=== PATIENT | male | born 1970 | race Caucasian/White ===

== ENCOUNTER 2019-01-15 11:25 | Emergency (ER) | payer MEDICARE, MEDICAID ==
[2019-01-15 11:47] VITALS: BP 139/80
[2019-01-15] MEDS ORDERED: Ketorolac 60 MG/2 ML SDV IM ONE (12:21)
--- NOTE | 2019-01-15 12:23 | EDM.PDOC ---
ED HPI GENERAL MEDICAL PROBLEM - General Chief Complaint: Neck Problem Stated Complaint: FUSION NECK, LEFT SIDE NECK/SHOULDER PAIN Time Seen by Provider: 01/15/19 12:05 Source of Information: Reports: Patient History Limitations: Reports: No Limitations - History of Present Illness INITIAL COMMENTS - FREE TEXT/NARRATIVE: 48 yo male s/p cervical neck fusion and who doctors in [place] comes for L post neck and shoulder pain/stiffness over the past couple of days. Has not discussed with his provider. No numbness to his arm. Denies any acute injury. Did carry grocery up stairs a couple days ago just before this started. Hurts some to turn his head to the left. 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 (see below) (none) - Related Data Allergies Allergy/AdvReac Type Severity Reaction Status Date / Time meloxicam Allergy Other Verified 01/15/19 11:49 trazodone Allergy Other Verified 01/15/19 11:49 Home Meds: Home Meds oxyCODONE HCl/Acetaminophen [Percocet 10-325 mg Tablet] 1 - 2 tab PO Q6H PRN 06/27 [History] Ranitidine [Zantac] 300 mg PO DAILY 09/20/16 [History] Albuterol Sulfate [Proair Hfa] 1 - 2 puff IH Q6H PRN 09/29/16 [History] Aspirin/Acetaminophen/Caffeine [Headache Relief Tablet] 1 tab PO ASDIRECTED PRN 09/29/16 [History] Omeprazole 20 mg PO QAM 09/29/16 [History] Chlorzoxazone 1 tab PO TID 01/15/19 [History] Cyclobenzaprine [Flexeril] 10 mg PO TID PRN #14 tab 01/15/19 [Rx] Past Medical History HEENT History: Reports: Impaired Vision, Other (See Below) Other HEENT History: polyps Respiratory History: Reports: Bronchitis, Recurrent Gastrointestinal History: Reports: Chronic Diarrhea, GERD Genitourinary History: Reports: Renal Calculus Musculoskeletal History: Reports: Back Pain, Chronic, Fracture, Osteoarthritis Other Musculoskeletal History: 2004 trampoline accident fracture hip. 2011 total hip replacement. 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 decompression surgert l4 and l5 Nov 2014. herniated disk cervical Neurological History: Reports: Concussion, Migraines Psychiatric History: Reports: Anxiety, Bipolar, Depression - Infectious Disease History Infectious Disease History: Reports: Chicken Pox - Past Surgical History HEENT Surgical History: Reports: Oral Surgery Musculoskeletal Surgical History: Reports: Hip Replacement Social & Family History - Tobacco Use Smoking Status *Q: Current Every Day Smoker Years of Tobacco use: 30 Packs/Tins Daily: 1 - Caffeine Use Caffeine Use: Reports: Coffee ED ROS GENERAL - Review of Systems Review Of Systems: See Below Constitutional: Reports: No Symptoms HEENT: Reports: No Symptoms Respiratory: Reports: No Symptoms Cardiovascular: Reports: No Symptoms GI/Abdominal: Reports: No Symptoms : Reports: No Symptoms Musculoskeletal: Reports: Neck Pain, Shoulder Pain (L posterior) Skin: Reports: No Symptoms Neurological: Reports: No Symptoms ED EXAM, UPPER BACK/NECK PAIN - Physical Exam Exam: See Below Exam Limited By: No Limitations General Appearance: Alert, WD/WN, No Apparent Distress Back Exam: Other (tenderness in the distribution of the L trapezius muscle. 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 Take ibuprofen 600 mg every 6 hrs after 6 pm today for pain relief. May add acetaminophen for added relief. Apply warm, moist compresses to area several times a day. Rest that arm in a sling. Recheck with your doctor if not better by [place].) Clinical Impression: Trapezius muscle strain Qualifiers: Encounter type: initial encounter Laterality: left Qualified Code(s): S46.812A - Strain of other muscles, fascia and tendons at shoulder and upper arm level, left arm, initial encounter - Discharge Information *PRESCRIPTION DRUG MONITORING PROGRAM REVIEWED*: No *COPY OF PRESCRIPTION DRUG MONITORING REPORT IN PATIENT SAVANNA: No Instructions: Muscle Strain, [id number] Referrals: PCP,None [Primary Care Provider] - Additional Instructions: Take ibuprofen 600 mg every 6 hrs with food after 6 pm today. Use Flexeril as directed. Use acetaminophen for added relief. Wear sling for support. Rest the L arm. Moist heat and massage will likely benefit. Recheck with your doctor if not better by Thursday.
== END 2019-01-15 12:36 | disposition home or self-care (01) ==
LOC: JP.ED 11:25
DX: S46.812A Strain of other muscles, fascia and tendons at shoulder and upper arm level, left arm, initial encounter (principal); F17.210 Nicotine dependence, cigarettes, uncomplicated; Z98.890 Other specified postprocedural states; Z88.8 Allergy status to other drugs, medicaments and biological substances; Z79.899 Other long term (current) drug therapy; X58.XXXA Exposure to other specified factors, initial encounter
CPT/HCPCS: 96372; 99283; J1885

== ENCOUNTER 2019-11-16 06:11 | Day surgery (SDC) | payer MEDICARE, MEDICAID ==
[2019-11-16] MEDS ORDERED: Bupivacaine 0.5% 30 ML SDV ONE ×2 (06:28→07:31)
[2019-11-16] MEDS ORDERED: Nozin Nasal Sanitizer NASBOTH ONE (06:30)
[2019-11-16] MEDS ORDERED: Lactated Ringers 1,000 ML IV SCH (06:30)
[2019-11-16] MEDS ORDERED: ceFAZolin 2 GM in Premix Bag 1 BAG IV ONE (06:30)
[2019-11-16] MEDS ORDERED: Midazolam 1 MG/ML 2 ML SDV ONE ×2 (07:29→09:43)
[2019-11-16] MEDS ORDERED: Propofol 200 MG/20 ML SDV ONE ×5 (07:29→09:26)
[2019-11-16] MEDS ORDERED: fentaNYL 100 MCG/2 ML SDV ONE ×2 (07:29→08:16)
[2019-11-16] MEDS ORDERED: Lactated Ringers 1,000 ML ONE (09:28)
[2019-11-16 12:07] VITALS: BP 111/51; PULSE 81
--- NOTE | 2019-11-29 08:32 | OR ---
DATE OF PROCEDURE: 11/16/2019 SURGEON: Omid Jasso MD PREOPERATIVE DIAGNOSIS: Rotator cuff tear, right shoulder. POSTOPERATIVE DIAGNOSIS: Rotator cuff tear, right shoulder, complex, complete. PROCEDURES: Arthroscopy, right shoulder with arthroscopic rotator cuff repair and decompression with acromioplasty. ANESTHESIA: Interscalene block with sedation. INDICATIONS: Mr. Schaffer is a 48-year-old gentleman with a history of long-standing and progressive pain in the right shoulder. He has difficulty with abduction and overhead reaching. Examination and imaging are consistent with full-thickness tear of the rotator cuff. He now presents for arthroscopic repair and possible open repair. Risks, benefits, and potential complications were discussed. DESCRIPTION OF PROCEDURE: After adequate anesthesia was obtained, patient placed in the lateral decubitus position and secured with a beanbag positioner. The right shoulder and arm were then prepped and draped in a sterile fashion. 10 pounds of traction was placed in the shoulder traction unit. A standard posterior portal was established and the scope was introduced. Examination of glenohumeral joint revealed some very mild degenerative changes with fraying of the labrum, particularly anteriorly. Minimal degenerative changes noted of the humeral head or glenoid articular cartilage. Biceps tendon was intact. Subscapularis was intact. Viewing the rotator cuff from the undersurface revealed a complete full- thickness tear. Anterior portal was established and the labrum was very lightly debrided. No other abnormalities were noted within the joint. The scope was then withdrawn and placed into the subacromial space. The bursa was cleared for visualization using shaver and ablation wand. Evaluation of the cuff revealed a complex tear with 2 areas of complete tearing in supraspinatus and the 2nd in the infraspinatus by a bridge of very thin remaining tendon and another delaminated tear more in the supraspinatus anteriorly. Edges of the tear were evaluated for repair and it was determined that the bridging piece could be excised, bringing the posterior flap anterior and the delaminated portion over top of this with the more anterior leaf of the tear. Using a combination of shaver and the ablation wand, the small intervening piece of the cuff tendon was excised. The edges of the tendon were very lightly debrided. The superior aspect of the tuberosity and the rotator cuff footprint were then cleared of soft tissues and a danish used to lightly decorticate this. Undersurface of the acromion was cleared of soft tissues with an ablation wand and the anterolateral aspect of the acromion was then removed with a danish, removing approximately 5 mm and beveling this medially and posteriorly. An awl was then used to prepare position for 2 M[employer] Healix anchors, 1 anterior and 1 posterior. Beginning with the posterior leaflet, all 4 limbs of the sutures were then brought up through the tendon using the [employer] device. This was then repeated anteriorly, placing the sutures in a manner that would allow overlap of the delaminated portion. This resulted in 1 set of sutures being placed in a mattress fashion and 1 set used in more of the simple stitch. Sutures were then tied down using standard arthroscopic technique. Set of sutures from both the anterior and posterior leaves were then used for a suture bridge second row technique. Bone tunnel was prepared just off the edge of the tuberosity. Sutures were passed through a Mitek knotless Healix anchor. Sutures were tensioned and the anchor was then secured. All sutures were then cut. The arm was taken through internal and external rotation and the repair was evaluated. It was found to be very stable. The scope was withdrawn and port sites were closed in a standard fashion. Sterile dressing was applied. The patient tolerated the procedure very well. There were no complications. He was taken from the operating room in a stable condition. Omid Jasso MD /[id number]
== END 2019-11-16 11:55 | disposition home or self-care (01) ==
LOC: JP.SDS 06:11
PROVIDERS: ATTEND Specialist
DX: M75.121 Complete rotator cuff tear or rupture of right shoulder, not specified as traumatic (principal); M25.811 Other specified joint disorders, right shoulder; K21.9 Gastro-esophageal reflux disease without esophagitis; F41.9 Anxiety disorder, unspecified; F31.9 Bipolar disorder, unspecified; F17.210 Nicotine dependence, cigarettes, uncomplicated; Z88.6 Allergy status to analgesic agent; Z88.8 Allergy status to other drugs, medicaments and biological substances; Z79.82 Long term (current) use of aspirin; Z79.899 Other long term (current) drug therapy
CPT/HCPCS: 36415; 80048; 85027; A9270-GY; C1713; J0690; J2250; J2704; J3010; J3490; J7120

== ENCOUNTER 2019-11-16 13:39 | Emergency (ER) | payer MEDICARE, MEDICAID ==
[2019-11-16] MEDS ORDERED: SUMAtriptan 6 MG/0.5 ML SDV SUBCUT ONE (13:58)
[2019-11-16] MEDS ORDERED: Ondansetron 4 MG/2 ML SDV IVPUSH ONE (13:59)
[2019-11-16] MEDS ORDERED: Sodium Chloride 0.9% 1,000 ML IV SCH ×2 (14:00→15:30)
--- NOTE | 2019-11-16 14:00 | EDM.PDOC ---
ED HPI GENERAL MEDICAL PROBLEM - General Chief Complaint: General Stated Complaint: MEDICAL VIA [facility]TH Time Seen by Provider: 11/16/19 14:00 Source of Information: Reports: Patient History Limitations: Reports: No Limitations - History of Present Illness INITIAL COMMENTS - FREE TEXT/NARRATIVE: pt had rotator cuff repair this am. He went home and he has vomited for 2-3 hours. He has a migraine headache. Onset: Today, Sudden Duration: Hour(s): Location: Reports: Abdomen, Upper Extremity, Right Associated Symptoms: Reports: Headaches, Nausea/Vomiting, Weakness Generalized Pain Score (Numeric/FACES): 4 - Related Data Allergies Allergy/AdvReac Type Severity Reaction Status Date / Time meloxicam Allergy Other Verified 11/16/19 13:50 trazodone Allergy Other Verified 11/16/19 13:50 Home Meds: Home Meds oxyCODONE HCl/Acetaminophen [Percocet 10-325 mg Tablet] 1 - 2 tab PO Q6H PRN 06/27 [History] Ranitidine [Zantac] 300 mg PO DAILY 09/20/16 [History] Albuterol Sulfate [Proair Hfa] 1 - 2 puff IH Q6H PRN 09/29/16 [History] Aspirin/Acetaminophen/Caffeine [Headache Relief Tablet] 1 tab PO ASDIRECTED PRN 09/29/16 [History] Omeprazole 20 mg PO QAM 09/29/16 [History] Chlorzoxazone 1 tab PO TID 01/15/19 [History] ARIPiprazole [Abilify] 5 mg PO DAILY 10/27/19 [History] FLUoxetine HCl [Prozac] 2 tab PO DAILY 10/27/19 [History] Past Medical History HEENT History: Reports: Impaired Vision, Other (See Below) Other HEENT History: polyps Respiratory History: Reports: Bronchitis, Recurrent Gastrointestinal History: Reports: Chronic Diarrhea, GERD Genitourinary History: Reports: Renal Calculus Musculoskeletal History: Reports: Back Pain, Chronic, Fracture, Osteoarthritis Other Musculoskeletal History: 2004 trampoline accident fracture hip. 2010 total hip replacement. 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 decompression surgert l4 and l5 Nov 2014. herniated disk cervical. R shoulder pain Neurological History: Reports: Concussion, Migraines Psychiatric History: Reports: Anxiety, Bipolar, Depression - Infectious Disease History Infectious Disease History: Reports: Chicken Pox - Past Surgical History HEENT Surgical History: Reports: Oral Surgery Musculoskeletal Surgical History: Reports: Hip Replacement Social & Family History - Tobacco Use Smoking Status *Q: Heavy Tobacco Smoker Years of Tobacco use: 30 Packs/Tins Daily: 1 - Caffeine Use Caffeine Use: Reports: Coffee, Soda - Recreational Drug Use Recreational Drug Use: No ED ROS GENERAL - Review of Systems Review Of Systems: See Below Reason Not Obtained: pt arrived with a headache and persistent vomiting since he went Constitutional: Reports: No Symptoms HEENT: Reports: No Symptoms Respiratory: Reports: No Symptoms Cardiovascular: Reports: No Symptoms Endocrine: Reports: No Symptoms GI/Abdominal: Reports: Nausea, Vomiting : Reports: No Symptoms Musculoskeletal: Reports: No Symptoms Skin: Reports: No Symptoms ED EXAM, GENERAL - Physical Exam Exam: See Below Free Text/Narrative:: pt is wretching and vomiting. He is not real uncomfortasble at this point. pt had a rotator cuff repair done today. Exam Limited By: No Limitations General Appearance: Alert, Anxious, Mild Distress, Other (pupils are equal and reactive. He is having a headache over the entire forehead area. He states this is like his migraines. ) Ears: Normal TMs Nose: Normal Inspection Throat/Mouth: Normal Inspection Head: Atraumatic Neck: Normal Inspection Respiratory/Chest: No Respiratory Distress Cardiovascular: Regular Rate, Rhythm GI/Abdominal: Soft, Non-Tender (Male) Exam: Deferred Rectal (Males) Exam: Deferred Back Exam: Normal Inspection Extremities: Normal Inspection Neurological: Alert, Oriented, Normal Cognition Psychiatric: Anxious Course - Vital Signs Last Recorded V/S: Last Vital Signs Temp 35.1 C L 11/16/19 13:45 Pulse 78 11/16/19 15:20 Resp 16 11/16/19 13:45 BP 129/75 11/16/19 15:20 Pulse Ox 93 L 11/16/19 15:20 - Orders/Labs/Meds Labs: Laboratory Tests 11/16/19 11/16/19 Range/Units 14:06 14:06 WBC 15.8 H (4.5-11.0) K/uL RBC 4.32 (4.30-5.90) M/uL Hgb 12.9 (12.0-15.0) g/dL Hct 39.7 L (40.0-54.0) % MCV 92 (80-98) fL MCH 30 (27-31) pg MCHC 33 (32-36) % Plt Count 288 (150-400) K/uL Neut % (Auto) 78 H (36-66) % Lymph % (Auto) 13 L (24-44) % Barber % (Auto) 8 H (2-6) % Eos % (Auto) 1 L (2-4) % Baso % (Auto) 0 (0-1) % Sodium 140 (140-148) mmol/L Potassium 4.3 (3.6-5.2) mmol/L Chloride 104 (100-108) mmol/L Carbon Dioxide 25 (21-32) mmol/L Anion Gap 10.8 (5.0-14.0) mmol/L BUN 10 (7-18) mg/dL Creatinine 0.9 (0.8-1.3) mg/dL Est Cr Clr Drug Dosing 105.90 mL/min Estimated GFR (MDRD) > 60 (>60) Glucose 144 H (74-106) mg/dL Calcium 8.6 (8.5-10.1) mg/dL Meds: Medications Discontinued Medications Generic Name Dose Route Start Last Admin Trade Name Freq PRN Reason Stop Dose Admin Sodium Chloride 1,000 mls @ 999 mls/hr 11/16/19 14:00 11/16/19 14:12 Normal Saline IV 999 mls/hr ASDIRECTED ALMAZ Administration Sodium Chloride 1,000 mls @ 999 mls/hr 11/16/19 15:30 11/16/19 15:21 Normal Saline IV 999 mls/hr ASDIRECTED ALMAZ Administration Ketorolac Tromethamine 30 mg 11/16/19 15:19 11/16/19 15:23 Toradol IVPUSH 11/16/19 15:20 30 mg ONETIME ONE Administration Ondansetron HCl 4 mg 11/16/19 13:59 11/16/19 14:12 Zofran IVPUSH 11/16/19 14:00 4 mg ONETIME ONE Administration Oxycodone/Acetaminophen 1 tab 11/16/19 16:17 11/16/19 16:58 Percocet 325-10 Mg PO 11/16/19 16:18 1 tab ONETIME ONE Administration Sumatriptan Succinate 6 mg 11/16/19 13:58 11/16/19 14:06 Imitrex SUBCUT 11/16/19 13:59 6 mg ONETIME ONE Administration - Re-Assessments/Exams Free Text/Narrative Re-Assessment/Exam: 11/16/19 16:22 Pt was given 2 liters of fluid and zoforan. He is feeling much better. He is tolerating fluids and toast. He was able to take a percocet for pain. Departure - Departure Time of Disposition: 16:24 Disposition: Home, Self-Care 01 Condition: Fair Clinical Impression: Post-operative nausea and vomiting, Migraine headache - Discharge Information Instructions: Migraine Headache, [id number], Nausea and Vomiting, Adult, Easy -to-Read Referrals: PCP,None [Primary Care Provider] - Forms: ED Department Discharge Care Plan Goals: lite diet tonight, push fluids, cont with percocet for pain, zoforan 4 mg q6h prn for nausea. rtc if problems. Sepsis Event Note - Evaluation Sepsis Screening Result: No Definite Risk - Focused Exam Date Exam was Performed: 11/18/19 Time Exam was Performed: 18:58
[2019-11-16] MEDS ORDERED: Ketorolac 30 MG/ML SDV IVPUSH ONE (15:19)
[2019-11-16 15:21] VITALS: BP 129/75; PULSE 78
[2019-11-16] MEDS ORDERED: Acetaminophen/oxyCODONE 325-10 MG Tab PO ONE (16:17)
== END 2019-11-16 17:14 | disposition home or self-care (01) ==
LOC: JP.ED 13:39
DX: K91.89 Other postprocedural complications and disorders of digestive system (principal); R11.2 Nausea with vomiting, unspecified; G43.909 Migraine, unspecified, not intractable, without status migrainosus; K21.9 Gastro-esophageal reflux disease without esophagitis; F32.9 Major depressive disorder, single episode, unspecified; F41.9 Anxiety disorder, unspecified; F17.210 Nicotine dependence, cigarettes, uncomplicated; Z79.82 Long term (current) use of aspirin; Z79.899 Other long term (current) drug therapy; Y83.9 Surgical procedure, unspecified as the cause of abnormal reaction of the patient, or of later complication, without mention of misadventure at the time of the procedure
CPT/HCPCS: 36415; 80048; 85025; 96361; 96372; 96374; 96375; 99284; A9270; J1885; J2405; J3030; J7030; 99283

== ENCOUNTER 2020-01-03 18:12 | Emergency (ER) | payer MEDICARE, MEDICAID ==
[2020-01-03 18:40] VITALS: BP 143/93; PULSE 89
--- NOTE | 2020-01-03 19:27 | EDM.PDOC ---
ED HPI GENERAL MEDICAL PROBLEM - General Chief Complaint: Respiratory Problem Stated Complaint: RESPIRATORY SYMPTOMS Time Seen by Provider: 01/03/20 18:55 Source of Information: Reports: Patient History Limitations: Reports: No Limitations - History of Present Illness INITIAL COMMENTS - FREE TEXT/NARRATIVE: This is a 49-year-old male presents to the ED requesting testing for COVID-19. He reports that he has a mild cough. No dyspnea. No travel to endemic areas. No known contacts with the disease. bodyaches Pain Score (Numeric/FACES): 6 - Related Data Allergies Allergy/AdvReac Type Severity Reaction Status Date / Time meloxicam Allergy Other Verified 01/03/20 18:51 trazodone Allergy Other Verified 01/03/20 18:51 Home Meds: Home Meds Albuterol Sulfate [Proair Hfa] 1 - 2 puff IH Q6H PRN 09/29/16 [History] Aspirin/Acetaminophen/Caffeine [Headache Relief Tablet] 1 tab PO ASDIRECTED PRN 09/29/16 [History] Omeprazole 20 mg PO QAM 09/29/16 [History] Chlorzoxazone 1 tab PO TID 01/15/19 [History] ARIPiprazole [Abilify] 5 mg PO DAILY 10/27/19 [History] FLUoxetine HCl [Prozac] 2 tab PO DAILY 10/27/19 [History] Acetaminophen/oxyCODONE [Percocet 325-5 MG] 2 each PO Q6HR PRN #50 tab 11/24/19 [Rx] oxyCODONE HCl/Acetaminophen [Percocet 5-325 mg Tablet] 2 each PO Q6HR PRN #42 tablet 12/16/19 [Rx] Past Medical History HEENT History: Reports: Impaired Vision, Other (See Below) Other HEENT History: polyps Respiratory History: Reports: Bronchitis, Recurrent Gastrointestinal History: Reports: Chronic Diarrhea, GERD Genitourinary History: Reports: Renal Calculus Musculoskeletal History: Reports: Back Pain, Chronic, Fracture, Osteoarthritis Other Musculoskeletal History: 2004 trampoline accident fracture hip. 2010 total hip replacement. 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 decompression surgert l4 and l5 Nov 2014. herniated disk cervical. right rotator cuff 11/16/19. right rotator cuff 11/16/19. R shoulder pain Neurological History: Reports: Concussion, Migraines Psychiatric History: Reports: Anxiety, Bipolar, Depression - Infectious Disease History Infectious Disease History: Reports: Chicken Pox - Past Surgical History HEENT Surgical History: Reports: Oral Surgery Musculoskeletal Surgical History: Reports: Hip Replacement, Shoulder Surgery Other Musculoskeletal Surgeries/Procedures:: right rotator cuff 11/16/19 Social & Family History - Tobacco Use Smoking Status *Q: Current Every Day Smoker Years of Tobacco use: 30 Packs/Tins Daily: 1 - Caffeine Use Caffeine Use: Reports: Coffee, Soda - Recreational Drug Use Recreational Drug Use: No ED ROS GENERAL - Review of Systems Review Of Systems: See Below Constitutional: Reports: No Symptoms HEENT: Reports: No Symptoms Respiratory: Reports: Cough Cardiovascular: Reports: No Symptoms Endocrine: Reports: No Symptoms GI/Abdominal: Reports: No Symptoms : Reports: No Symptoms Musculoskeletal: Reports: No Symptoms Skin: Reports: No Symptoms Neurological: Reports: No Symptoms Psychiatric: Reports: No Symptoms Hematologic/Lymphatic: Reports: No Symptoms Immunologic: Reports: No Symptoms ED EXAM, GENERAL - Physical Exam Exam: See Below Exam Limited By: No Limitations General Appearance: Alert, No Apparent Distress Ears: Normal External Exam Nose: Normal Inspection, Normal Mucosa Throat/Mouth: Normal Inspection Head: Atraumatic, Normocephalic Neck: Normal Inspection Respiratory/Chest: No Respiratory Distress, Lungs Clear Cardiovascular: Regular Rate, Rhythm GI/Abdominal: No Distention Back Exam: Normal Inspection Extremities: Normal Inspection Neurological: Alert, Oriented Psychiatric: Normal Affect, Normal Mood Skin Exam: Warm, Dry Course - Vital Signs Last Recorded V/S: Last Vital Signs Temp 36.8 C 01/03/20 18:43 Pulse 89 01/03/20 18:43 Resp 16 01/03/20 18:43 BP 143/93 H 01/03/20 18:43 Pulse Ox 95 01/03/20 18:43 - Re-Assessments/Exams Free Text/Narrative Re-Assessment/Exam: This is a 49-year-old male presents with concerns that he may require COVID-19 testing. He has had no known contacts, no travel to endemic areas. He does not require admission and has normal vital signs. He does not meet criteria for testing. For what it's worth we performed a pulmonary ultrasound which showed no subpleural B-lines. He is safe for discharge, we discussed remaining in isolation for the duration of his respiratory symptoms. 01/03/20 19:39 Departure - Departure Time of Disposition: 19:25 Disposition: Home, Self-Care 01 Clinical Impression: Cough - Discharge Information Instructions: Cough, Adult, [id number] Referrals: Mary Cowan CRAB BUTCHER [Primary Care Provider] - Forms: ED Department Discharge Additional Instructions: You do not meet criteria for coronavirus testing, please return to the ER for worsening shortness of breath You should quarantine until you are 7 days without cough. Sepsis Event Note - Evaluation Sepsis Screening Result: No Definite Risk - Focused Exam Vital Signs: Vital Signs Temp Pulse Resp BP Pulse Ox 01/03/20 18:43 36.8 C 89 16 143/93 H 95 01/03/20 18:29 36.8 C 89 16 143/93 H 95 Date Exam was Performed: 01/03/20 Time Exam was Performed: 19:38
== END 2020-01-03 19:35 | disposition home or self-care (01) ==
LOC: JP.ED 18:12
DX: R05 Cough (principal); K21.9 Gastro-esophageal reflux disease without esophagitis; F31.9 Bipolar disorder, unspecified; F41.9 Anxiety disorder, unspecified; F17.210 Nicotine dependence, cigarettes, uncomplicated; Z88.5 Allergy status to narcotic agent; Z88.8 Allergy status to other drugs, medicaments and biological substances; Z79.899 Other long term (current) drug therapy
CPT/HCPCS: 99283

== ENCOUNTER 2020-04-11 06:03 | Day surgery (SDC) | payer MEDICARE, MEDICAID ==
[2020-04-11] MEDS ORDERED: Nozin Nasal Sanitizer NASBOTH ONE (06:30)
[2020-04-11] MEDS ORDERED: Lactated Ringers 1,000 ML IV SCH (06:30)
[2020-04-11] MEDS ORDERED: ceFAZolin 2 GM in Premix Bag 1 BAG IV ONE (06:30)
[2020-04-11] MEDS ORDERED: Bupivacaine 0.5% 30 ML SDV ONE (06:38)
[2020-04-11] MEDS ORDERED: Propofol 200 MG/20 ML SDV ONE ×3 (07:24→09:31)
[2020-04-11] MEDS ORDERED: Midazolam 1 MG/ML 5 ML SDV ONE (07:24)
[2020-04-11] MEDS ORDERED: fentaNYL 250 MCG/5 ML SDV ONE (07:24)
[2020-04-11] MEDS ORDERED: Labetalol 20 MG/4 ML Syringe ONE (08:27)
[2020-04-11] MEDS ORDERED: Ketorolac 60 MG/2 ML SDV ONE (08:41)
[2020-04-11] MEDS ORDERED: Lactated Ringers 1,000 ML ONE (09:47)
[2020-04-11 12:53] VITALS: BP 102/71; PULSE 89
--- NOTE | 2020-04-30 10:50 | OR ---
DATE OF PROCEDURE: 04/11/2020 SURGEON: Omid Jasso MD PREOPERATIVE DIAGNOSIS: Massive recurrent rotator cuff tear, right shoulder. POSTOPERATIVE DIAGNOSIS: Massive recurrent rotator cuff tear, right shoulder with deficient infraspinatus. PROCEDURE: Open rotator cuff repair and augmentation with ArthroFlex graft. ANESTHESIA: General with interscalene block. INDICATIONS: Wilfrid is a 49-year-old gentleman with a history of large rotator cuff tear with attempted repair a few months ago. He had failed to progress with strengthening, had persistent pain, and re-evaluation revealed recurrent tear with significant retraction. He is therefore brought to the operating room for attempt at open rotator cuff repair with possible allograft augmentation. Risks, benefits, potential complications of procedure including the possibility of recurrent tear and failure of repair. DESCRIPTION OF PROCEDURE: After adequate anesthesia was obtained, the patient was placed in a modified beach-chair position. Right shoulder and arm were then prepped and draped in a sterile fashion. Longitudinal incision was made off the edge of the acromion laterally, carried down through the subcutaneous tissues. Hemostasis was obtained with electrocautery. The deltoid was split in line with its fibers and resected for a short distance anterior and posterior from the acromion. Self-retaining retractor was placed. Failure of the repair was noted with significant retraction of the tendon. Previous sutures were identified, cut and removed. The edge of the tendon was grasped and manipulated and found to be significantly retracted, particularly at the junction of the supra and infraspinatus and into the infraspinatus. The extreme anterior aspect of the supraspinatus could be reduced out over the footprint. An elevator was used to free any adhesions on the superior aspect of the cuff as well as release it from the edge of the glenoid inferiorly. This allowed additional mobilization laterally. There remained deficiency particularly of the infraspinatus of approximately a centimeter. Suture was placed into the edge of the tendon in a Brayan-Cj technique and used for manipulation and traction. The superior aspect of the greater tuberosity and rotator cuff footprint were debrided with a rongeur to a bleeding bed. 2 Mitek Healix anchors were then placed at the medial edge of the footprint. With the arm slightly abducted, sutures were passed through the tendon a few millimeters medial to the free edge. Once all of the sutures had been passed, tension was placed on the sutures to assess the reduction of the edge of the tendon on to the footprint. Adequate position was obtained in the more anterior aspect, and again some deficiency noted in the central and posterior portions. The arm was again abducted slightly. Sutures were then tied down from anterior-posterior. An additional suture anchor was utilized for additional fixation. 2 limbs of a set of the more anterior suture pairs and 2 additional limbs of a more posterior suture pair were utilized for a lateral row. Awl was used to create a position for the lateral anchor. Sutures were passed through the anchor and the anchor was then secured in position. In order to reinforce the repair as well as makeup for some of the deficient cuff, an ArthroFlex graft was utilized. This was trimmed to fit over the defect and overlay the cuff for a distance of little over a centimeter medial to the repair. The corners of the graft were sewn in position with nonabsorbable suture. A 0 Vicryl was then used around the periphery. 2 of the suture pairs that were not utilized for the lateral row were then brought up through the graft with 1 set more anterior and 1 more posterior. These were then tied over the graft securing it down in place. The preferred suture was then completed running it at around the edge. A small area more anterolaterally which overlaid the footprint and could not be easily secured with the Vicryl suture was tacked down with an additional Healix anchor. Once this was completed, it resulted in complete coverage of the rotator cuff footprint of the cuff repair and portion of the intact tendon up to the musculotendinous junction in some areas. Arm could be placed in neutral position at the side with only mild tension on the repair. The wound was irrigated. Deltoid was then closed in [id number]-[id number] fashion with 0 Vicryl. Skin was closed with 2-0 Vicryl and a running 3-0 Monocryl. Steri-Strips were applied. Sterile dressing was then placed. The arm was placed into a SlingShot bolster sling and patient was taken from the operating room in a stable condition. There were no complications. Omid Jasso MD /[id number]
== END 2020-04-11 13:20 | disposition home or self-care (01) ==
LOC: JP.SDS 06:03
PROVIDERS: ATTEND Specialist
DX: M75.101 Unspecified rotator cuff tear or rupture of right shoulder, not specified as traumatic (principal); F17.200 Nicotine dependence, unspecified, uncomplicated
CPT/HCPCS: 23412; 36415; 80048; 85027; A9270; C1713; J0690; J1885; J2250; J2704; J3010; J3490; J7120; Q4125

== ENCOUNTER 2020-08-16 11:36 | Emergency (ER) | payer MEDICARE, MEDICAID ==
[2020-08-16 11:43] VITALS: BP 137/86; PULSE 85
--- NOTE | 2020-08-16 12:06 | EDM.PDOC ---
ED HPI GENERAL MEDICAL PROBLEM - General Chief Complaint: Neuro Symptoms/Deficits Stated Complaint: NUMBNESS ON RT SIDE OF FACE Time Seen by Provider: 08/16/20 11:45 Source of Information: Reports: Patient, Family History Limitations: Reports: No Limitations - History of Present Illness INITIAL COMMENTS - FREE TEXT/NARRATIVE: 49-year-old male who yesterday developed some numbness and tingling in the right side of his face and tongue, and today developed weakness of the right face with difficulty closing his right eye and smiling. He has some vague discomfort in his right shoulder and arm but this is intermittent and chronic since his surgery. It seems worse however so he is wondering if it is related. No fevers or chills, no sore throat, no shortness of breath or chest pain. Onset: Gradual Duration: Day(s): (Symptoms have been developing for 2 days) Location: Reports: Face (Right side) Associated Symptoms: Reports: Other (Intermittent right arm pain) Right Arm Pain Score (Numeric/FACES): 3 - Related Data Allergies Allergy/AdvReac Type Severity Reaction Status Date / Time meloxicam Allergy Other Verified 04/11/20 06:17 trazodone Allergy Other Verified 04/11/20 06:17 Home Meds: Home Meds Albuterol Sulfate [Proair Hfa] 1 - 2 puff IH Q6H PRN 09/29/16 [History] Omeprazole 20 mg PO QAM PRN 09/29/16 [History] Chlorzoxazone 1 tab PO TID 01/15/19 [History] ARIPiprazole [Abilify] 5 mg PO DAILY 10/27/19 [History] LORazepam [Ativan] 1 mg PO BID PRN 04/03/20 [History] Venlafaxine [Effexor XR] 150 mg PO DAILY 04/03/20 [History] Rizatriptan Benzoate [Rizatriptan] 5 mg PO BID PRN 04/11/20 [History] oxyCODONE HCl/Acetaminophen [Percocet 5-325 mg Tablet] 1 - 2 each PO Q8HR PRN #40 tablet 04/26/20 [Rx] Varenicline Tartrate [Chantix] 1 each PO DAILY 06/21/20 [History] Budesonide/Formoterol Fumarate [Symbicort 160-4.5 Mcg Inhaler] 2 puff IH BID 08/02/20 [History] predniSONE [Prednisone] 20 mg PO DAILY 5 Days #15 tablet 08/16/20 [Rx] traZODone 50 mg PO BEDTIME 08/16/20 [History] Past Medical History HEENT History: Reports: Impaired Vision, Other (See Below) Other HEENT History: polyps Respiratory History: Reports: Bronchitis, Recurrent Gastrointestinal History: Reports: Chronic Diarrhea, GERD Genitourinary History: Reports: Renal Calculus Musculoskeletal History: Reports: Back Pain, Chronic, Fracture, Osteoarthritis Other Musculoskeletal History: 2004 trampoline accident fracture hip. 2010 total hip replacement. 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 decompression surgert l4 and l5 Nov 2014. herniated disk cervical. right rotator cuff 11/16/19. right rotator cuff 11/16/19. R shoulder pain Neurological History: Reports: Concussion, Migraines Psychiatric History: Reports: Anxiety, Bipolar, Depression Endocrine/Metabolic History: Reports: Obesity/BMI 30+ - Infectious Disease History Infectious Disease History: Reports: Chicken Pox - Past Surgical History HEENT Surgical History: Reports: Oral Surgery Musculoskeletal Surgical History: Reports: Hip Replacement, Shoulder Surgery Other Musculoskeletal Surgeries/Procedures:: right rotator cuff 11/16/19. s/p RRCR with collagen 04/11/20 Social & Family History - Tobacco Use Tobacco Use Status *Q: Current Every Day Tobacco User Years of Tobacco use: 30 Packs/Tins Daily: 1 - Caffeine Use Caffeine Use: Reports: Coffee - Recreational Drug Use Recreational Drug Use: No ED ROS GENERAL - Review of Systems Review Of Systems: See Below Constitutional: Denies: Fever, Chills, Malaise HEENT: Reports: Other (Numb tongue, perioral and periorbital numbness and right facial weakness) Respiratory: Denies: Shortness of Breath GI/Abdominal: Reports: No Symptoms Musculoskeletal: Reports: Other (Chronic neck and back pain) Skin: Denies: Bruising Neurological: Reports: Paresthesia (Right face and right tongue) ED EXAM, NEURO - Physical Exam Exam: See Below Exam Limited By: No Limitations General Appearance: Alert, No Apparent Distress Eye Exam: Right Eye: Other (Patient has difficulty closing the right eye due to periorbital muscle weakness), Bilateral Eye: EOMI, PERRL Ears: Normal TMs Head Exam: Atraumatic Respiratory/Chest: No Respiratory Distress, Lungs Clear Cardiovascular: Regular Rate, Rhythm Neurological: Alert, Oriented x 3, Other (Definite right facial muscle weakness compared to the left) Psychiatric: Normal Affect, Normal Mood Skin Exam: Warm, Dry #1 Interpretation EKG Date: 08/16/20 Rhythm: NSR Course - Vital Signs Last Recorded V/S: Last Vital Signs Temp 97.7 F 08/16/20 11:41 Pulse 85 08/16/20 11:41 Resp 16 08/16/20 11:41 BP 137/86 08/16/20 11:41 Pulse Ox 95 08/16/20 11:41 - Orders/Labs/Meds Orders: Active Orders 24 hr Category Date Time Status EKG 12 Lead [EK] Routine Ther 08/16/20 12:06 Ordered - Re-Assessments/Exams Free Text/Narrative Re-Assessment/Exam: 08/16/20 12:04 Due to the right arm pain and facial weakness, an EKG was done on arrival which was reassuring without ST elevation or depression. Patient's exam and history is classic for the diagnosis of Anglin's palsy. He will be placed on 60 mg of prednisone daily for 5 consecutive days, can recheck next week if not improving satisfactorily. Return sooner if worsening or concerns. Departure - Departure Time of Disposition: 12:18 Disposition: Home, Self-Care 01 Clinical Impression: Right-sided Anglin's palsy - Discharge Information Prescriptions: predniSONE [Prednisone] 20 mg PO DAILY 5 Days #15 tablet Instructions: Anglin Palsy, Adult Referrals: PCP,None [Primary Care Provider] - Forms: ED Department Discharge Care Plan Goals: Take 3 pills of prednisone with your first meal for 5 consecutive days. Recheck next week if not improving satisfactorily, or return sooner if worsening despite treatment. Patch your right eye if you have difficulty closing the eye. Sepsis Event Note (ED) - Evaluation Sepsis Screening Result: No Definite Risk - Focused Exam Vital Signs: Vital Signs Temp Pulse Resp BP Pulse Ox 08/16/20 11:41 97.7 F 85 16 137/86 95 - My Orders Last 24 Hours: My Active Orders 08/16/20 12:06 EKG 12 Lead [EK] Routine - Assessment/Plan Last 24 Hours: My Active Orders 08/16/20 12:06 EKG 12 Lead [EK] Routine
== END 2020-08-16 12:18 | disposition home or self-care (01) ==
LOC: JP.ED 11:36
DX: G51.0 Bell's palsy (principal); K21.9 Gastro-esophageal reflux disease without esophagitis; F31.9 Bipolar disorder, unspecified; F17.210 Nicotine dependence, cigarettes, uncomplicated; E66.9 Obesity, unspecified; Z68.31 Body mass index [BMI] 31.0-31.9, adult; Z88.5 Allergy status to narcotic agent; Z88.8 Allergy status to other drugs, medicaments and biological substances
CPT/HCPCS: 93005; 99284-25

== ENCOUNTER 2020-11-02 22:00 | Emergency (ER) | payer MEDICARE, MEDICAID ==
[2020-11-02 22:14] VITALS: BP 153/77; PULSE 93
--- NOTE | 2020-11-02 22:47 | EDM.PDOC ---
ED HPI GENERAL MEDICAL PROBLEM - General Chief Complaint: General Stated Complaint: INFECTION Time Seen by Provider: 11/02/20 22:25 Source of Information: Reports: Patient History Limitations: Reports: No Limitations - History of Present Illness INITIAL COMMENTS - FREE TEXT/NARRATIVE: 49-year-old male was had penile irritation just at the base of the glans on the ventral surface of the penis for the last several days. He has put some topical creams on there but it is not working. Onset: Gradual Duration: Day(s): (Symptoms for 3 days) Location: Reports: Other (Isolated to the penis) Associated Symptoms: Reports: Other (Area is pruritic, swollen and red) Penis Pain Score (Numeric/FACES): 4 - Related Data Allergies Allergy/AdvReac Type Severity Reaction Status Date / Time meloxicam Allergy Other Verified 11/02/20 22:19 Home Meds: Home Meds Albuterol Sulfate [Proair Hfa] 1 - 2 puff IH Q6H PRN 09/29/16 [History] Omeprazole 20 mg PO QAM PRN 09/29/16 [History] Chlorzoxazone 1 tab PO TID 01/15/19 [History] ARIPiprazole [Abilify] 5 mg PO DAILY 10/27/19 [History] Venlafaxine [Effexor XR] 150 mg PO DAILY 04/03/20 [History] Rizatriptan Benzoate [Rizatriptan] 5 mg PO BID PRN 04/11/20 [History] Budesonide/Formoterol Fumarate [Symbicort 160-4.5 Mcg Inhaler] 2 puff IH BID 08/02/20 [History] traZODone 50 mg PO BEDTIME 08/16/20 [History] Acetaminophen/oxyCODONE [Percocet 325-10 MG] 1 tab PO . SIX TIMES DAILY 10/18/20 [History] Past Medical History HEENT History: Reports: Impaired Vision, Other (See Below) Other HEENT History: polyps Respiratory History: Reports: Bronchitis, Recurrent Gastrointestinal History: Reports: Chronic Diarrhea, GERD Genitourinary History: Reports: Renal Calculus Musculoskeletal History: Reports: Back Pain, Chronic, Fracture, Osteoarthritis Other Musculoskeletal History: 2004 trampoline accident fracture hip. 2010 total hip replacement. 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 decompression surgert l4 and l5 Nov 2014. herniated disk cervical. right rotator cuff 11/16/19. right rotator cuff 11/16/19. R shoulder pain Neurological History: Reports: Concussion, Migraines Psychiatric History: Reports: Anxiety, Bipolar, Depression Endocrine/Metabolic History: Reports: Obesity/BMI 30+ - Infectious Disease History Infectious Disease History: Reports: Chicken Pox - Past Surgical History HEENT Surgical History: Reports: Oral Surgery Respiratory Surgical History: Reports: None GI Surgical History: Reports: None Male Surgical History: Reports: None Musculoskeletal Surgical History: Reports: Hip Replacement, Shoulder Surgery Other Musculoskeletal Surgeries/Procedures:: right rotator cuff 11/16/19. s/p RRCR with collagen 04/11/20 Social & Family History - Tobacco Use Tobacco Use Status *Q: Current Every Day Tobacco User Years of Tobacco use: 30 Packs/Tins Daily: 1 - Caffeine Use Caffeine Use: Reports: Coffee, Soda - Recreational Drug Use Recreational Drug Use: Yes Recreational Drug Type: Reports: Marijuana/Hashish Recreational Drug Use Frequency: Monthly ED ROS GENERAL - Review of Systems Review Of Systems: See Below Constitutional: Denies: Fever, Chills HEENT: Reports: No Symptoms Respiratory: Reports: No Symptoms GI/Abdominal: Reports: No Symptoms : Reports: Other (Top of the proximal glans of the penis is irritated and red, the redness extends onto the shaft) ED EXAM, GENERAL - Physical Exam Exam: See Below Exam Limited By: No Limitations General Appearance: Alert, No Apparent Distress Head: Atraumatic Respiratory/Chest: No Respiratory Distress (Male) Exam: Other (The proximal edge of the glans of the penis on the ventral surface is erythematous, there is erythema and swelling extending onto the distal shaft and some small ulcerations in the crease. No significant drainage.) Course - Vital Signs Last Recorded V/S: Last Vital Signs Temp 98.6 F 11/02/20 22:16 Pulse 93 11/02/20 22:16 Resp 16 11/02/20 22:16 BP 153/77 H 11/02/20 22:16 Pulse Ox 95 11/02/20 22:16 - Orders/Labs/Meds Orders: Active Orders 24 hr Category Date Time Status VIRAL CULTURE, GENERAL Stat Lab 11/02/20 22:44 Ordered - Re-Assessments/Exams Free Text/Narrative Re-Assessment/Exam: 11/02/20 22:50 A herpes culture was obtained and the patient was placed on Bactrim DS for the weekend. He will take antibiotic twice daily, keep the area clean, and recheck next week especially if not improving satisfactorily. Departure - Departure Time of Disposition: 23:04 Disposition: Home, Self-Care 01 Clinical Impression: Inflamed penis - Discharge Information Instructions: Rod[facility] Referrals: Sarah Orozco DO [Primary Care Provider] - Forms: ED Department Discharge Care Plan Goals: Keep the inflamed area clean through the weekend, take antibiotic twice daily and recheck next week for culture results and response to treatment. Sepsis Event Note (ED) - Evaluation Sepsis Screening Result: No Definite Risk - Focused Exam Vital Signs: Vital Signs Temp Pulse Resp BP Pulse Ox 11/02/20 22:16 98.6 F 93 16 153/77 H 95 11/02/20 22:12 98.6 F 93 16 153/77 H 95 - My Orders Last 24 Hours: My Active Orders 11/02/20 22:44 VIRAL CULTURE, GENERAL Stat - Assessment/Plan Last 24 Hours: My Active Orders 11/02/20 22:44 VIRAL CULTURE, GENERAL Stat
== END 2020-11-02 23:05 | disposition home or self-care (01) ==
LOC: JP.ED 22:00
DX: N48.29 Other inflammatory disorders of penis (principal); K21.9 Gastro-esophageal reflux disease without esophagitis; E66.9 Obesity, unspecified; Z68.33 Body mass index [BMI] 33.0-33.9, adult; Z88.8 Allergy status to other drugs, medicaments and biological substances; Z79.899 Other long term (current) drug therapy; Z72.0 Tobacco use
CPT/HCPCS: 87252; 99283; 99284

== ENCOUNTER 2021-04-24 09:17 | Day surgery (SDC) | payer MEDICARE, MEDICAID ==
[~2021-04-24 09:17] MED LIST: Bupivacaine 0.5% 30 ML SDV ONE
[2021-04-24] MEDS ORDERED: Lactated Ringers 1,000 ML IV SCH (10:00)
[2021-04-24] MEDS ORDERED: ceFAZolin 2 GM in Premix Bag 1 BAG IV ONE (10:00)
[2021-04-24] MEDS ORDERED: Nozin Nasal Sanitizer NASBOTH ONE (10:00)
[2021-04-24] MEDS ORDERED: Propofol 200 MG/20 ML SDV ONE ×2 (10:04→11:00)
[2021-04-24] MEDS ORDERED: fentaNYL 100 MCG/2 ML SDV ONE ×4 (10:04→14:31)
[2021-04-24] MEDS ORDERED: Midazolam 1 MG/ML 2 ML SDV ONE (10:04)
[2021-04-24] MEDS ORDERED: Bupivacaine 0.5% 30 ML SDV ONE (10:06)
[2021-04-24] MEDS ORDERED: Acetaminophen/oxyCODONE 325-5 MG Tab PO PRN (16:24)
[2021-04-24 17:36] VITALS: BP 130/69; PULSE 78
--- NOTE | 2021-05-06 21:09 | OR ---
DATE OF PROCEDURE: 04/24/2021 SURGEON: Omid Jasso MD PREOPERATIVE DIAGNOSIS: Massive recurrent right rotator cuff tear. POSTOPERATIVE DIAGNOSIS: Massive recurrent right rotator cuff tear. PROCEDURE: Superior capsular reconstruction using dermal allograft. 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 INDICATIONS: Wilfrid is a 50-year-old gentleman with a history of massive rotator cuff tear and 2 previous attempts at repair, one with attempted augmentation with allograft. He has failed this as well. He is having persistent pain, evidence of superior migration. Not an ideal candidate for reverse shoulder arthroplasty at this point and is now brought to the operating room for a superior capsular reconstruction in an effort to provide some improvement in pain and function. He is aware that this is not designed to restore strength or full range of motion. Risks, benefits, and potential complications were discussed. DESCRIPTION OF PROCEDURE: After adequate anesthesia was obtained, the patient was placed in lateral decubitus position and secured with a beanbag positioner. Right shoulder and arm were prepped and draped in a sterile fashion. 10 pounds of traction placed in shoulder traction unit. Standard posterior portal was established. Scope was introduced. This revealed no significant damage to the articular surface of the humeral head. Some very minor scuffing of the glenoid was noted. Degenerative tear of the anterior labrum was also noted. Biceps tendon was intact. Anterior portal was established and the anterior labrum was debrided. Complete tear of the rotator cuff with retraction was noted back to the level of the glenoid. The scope was removed and placed into the subacromial space. Previous suture anchors were still in place in the tuberosity with knot still intact; however, the cuff had pulled completely through this and retracted medially. A large portion of the dermal allograft was free-floating within the subacromial space. This was removed. Using combination of a shaver and grasper previous sutures and the anchors are removed and/or debrided. Footprint was lightly decorticated with a danish. Some minor debridement in the subacromial space was accomplished for visualization, removal of bursa, but no revision of the acromioplasty was performed. Visualizing more medially, the superior edge of the glenoid was identified. Labrum and biceps tendon were left intact. Using combination of the radiofrequency ablation and shaver, the superior neck of the glenoid was exposed and a danish was used to lightly decorticate this. Small stab holes were made after determining appropriate angles for suture anchor placement on the glenoid neck. One was placed just anterior to the biceps and one posterior. Two Mitek Healix anchors were then placed in the medial portion of the greater tuberosity footprint. Measurements were taken between these 4 points to determine the size of the allograft needed. Allograft was cut with approximately 5 mm of additional length and width. Anterior and posterior portions were marked. One limb from each of the glenoid anchors was retrieved out the central lateral port. These are delivered through the dermal graft with the Expressew device at the marked positions of the medial anchors. Sutures were then tied together over the graft for a double ren technique. Pulling tension on each of the other strands and using a grasper to help maneuver the graft into position, graft was pulled into the subacromial space and up against the glenoid neck. Each limb of the sutures was then retrieved out the lateral portal and tied down with a knot pusher, securing the graft against the glenoid neck. The graft was laid out over the footprint of the tuberosity. Expressew device was used to deliver all 4 limbs of each of the anchors through the graft approximately a centimeter from the lateral edge. Sutures were tied down over the graft and one set of sutures from the anterior anchor and one from the posterior anchor were selected for placement in a knotless anchor. The channel was tapped. Sutures were passed through the knotless anchor, tensioned, and secured into the tuberosity. The remaining two sets are secured likewise creating a crisscross suture bridge with a lateral row fixation. This resulted in the graft in good position with excellent fixation on the tuberosity and nice tension across the humeral head. All remaining sutures were cut. Port sites were closed in a standard fashion. Steri-Strips were applied. Sterile dressing was then placed. The patient tolerated the procedure very well. There were no complications, taken from the operating room in stable condition. Omid Jasso MD /[id number] SHANTEL
== END 2021-04-24 18:07 | disposition home or self-care (01) ==
LOC: JP.SDS 09:17
PROVIDERS: ATTEND Specialist
DX: M75.121 Complete rotator cuff tear or rupture of right shoulder, not specified as traumatic (principal); S43.431A Superior glenoid labrum lesion of right shoulder, initial encounter; F17.210 Nicotine dependence, cigarettes, uncomplicated; J44.9 Chronic obstructive pulmonary disease, unspecified; Z88.5 Allergy status to narcotic agent
CPT/HCPCS: 29806; 36415; 80048; 85027; A9270; C1713; J0690; J2250; J2704; J3010; J3490; J7120